=== PATIENT | male | born 1990 | race Caucasian/White ===

== ENCOUNTER 2022-08-08 10:33 | Emergency (ER) | payer SELFPAY ==
[~2022-08-08] VITALS: Ht 175.3 cm; Wt 81.6 kg
[2022-08-08] MEDS ORDERED: SODIUM CHLORIDE 0.9% 1000ML 1,000 ML IV SCH (11:30)
[2022-08-08] MEDS ORDERED: SODIUM CHLORIDE 0.9% 1000ML 1,000 ML IV ONE (11:45)
[2022-08-08] MEDS ORDERED: SODIUM CHLORIDE 0.9% 1000ML 1,000 ML ONE (11:45)
[2022-08-08] MEDS ORDERED: LORAZEPAM INJ 2 MG/ML VIAL IV ONE (13:15)
== END 2022-08-08 13:55 | disposition home or self-care (01) ==
LOC: ER 11:23
DX: S10.91XA Abrasion of unspecified part of neck, initial encounter (principal); S00.81XA Abrasion of other part of head, initial encounter; S00.212A Abrasion of left eyelid and periocular area, initial encounter; S00.01XA Abrasion of scalp, initial encounter; X99.0XXA Assault by sharp glass, initial encounter; F10.20 Alcohol dependence, uncomplicated
CPT/HCPCS: 70450; 72125; 99284; J2060; J7030